=== PATIENT | female | born 1965 | race Caucasian/White ===

== ENCOUNTER 2017-08-27 20:30 | Emergency (ER) | payer BC ==
[2017-08-27] MEDS ORDERED: predniSONE 20 MG TAB PO ONE (20:52)
[2017-08-27] MEDS ORDERED: FAMOTIDINE 20 MG TAB PO ONE (20:52)
--- NOTE | 2017-08-27 20:54 | EDPHY ---
H & P Stated Complaint: Rash to trunk front and back since earlier today. Time Seen by Provider: 08/27/17 20:48 HPI/ROS: CHIEF COMPLAINT: Urticaria HISTORY OF PRESENT ILLNESS: Patient is a 51-year-old female who developed urticaria about 2 hr ago after eating and new energy bar. She cannot think of any other new possible triggers. She denies any swelling of her mouth airway. No difficulty breathing. No nausea vomiting. She was having intense itching and took 2 Benadryl about 1 hr ago. She is not on any medications. REVIEW OF SYSTEMS: Constitutional: denies: chills, fever, recent illness, recent injury EENTM: denies: blurred vision, double vision, nose congestion Respiratory: denies: cough, shortness of breath Cardiac: denies: chest pain, irregular heart rate, lightheadedness, palpitations Gastrointestinal/Abdominal: denies: abdominal pain, diarrhea, nausea, vomiting, blood streaked stools Genitourinary: denies: dysuria, frequency, hematuria, pain Musculoskeletal: denies: joint pain, muscle pain Skin: See HPI Neurological: denies: headache, numbness, paresthesia, tingling, dizziness, weakness Hematologic/Lymphatic: denies: blood clots, easy bleeding, easy bruising Immunologic/allergic: denies: HIV/AIDS, transplant EXAM: GENERAL: Well-appearing, well-nourished and in no acute distress. HEAD: Atraumatic, normocephalic. EYES: Pupils equal round and reactive to light, extraocular movements intact, sclera anicteric, conjunctiva are normal. ENT: No intraoral swelling, TMs normal, nares patent, oropharynx clear without exudates. Moist mucous membranes. NECK: Normal range of motion, supple without lymphadenopathy or JVD. LUNGS: No stridor, Breath sounds clear to auscultation bilaterally and equal. No wheezes rales or rhonchi. HEART: Regular rate and rhythm without murmurs, rubs or gallops. ABDOMEN: Soft, nontender, normoactive bowel sounds. No guarding, no rebound. No masses appreciated. BACK: No CVA tenderness, no spinal tenderness, step-offs or deformities EXTREMITIES: Normal range of motion, no pitting or edema. No clubbing or cyanosis. NEUROLOGICAL: Cranial nerves II through XII grossly intact. Normal speech, normal gait. 5 strength, normal movement in all extremities, normal sensation PSYCH: Normal mood, normal affect. SKIN: Urticarial lesions over trunk and very slightly on the lower extremities. Source: Patient Exam Limitations: No limitations - Personal History LMP (Females 10-55): 15-21 Days Ago Current Tetanus/Diphtheria Vaccine: Yes Current Tetanus Diphtheria and Acellular Pertussis (TDAP): Yes Tetanus Vaccine Date: 2011 - Medical/Surgical History Hx Asthma: No Hx Chronic Respiratory Disease: No Hx Diabetes: No Hx Cardiac Disease: No Hx Renal Disease: No Hx Cirrhosis: No Hx Alcoholism: No Hx HIV/AIDS: No Hx Splenectomy or Spleen Trauma: No Other PMH: hypothyroid. - Family History Significant Family History: No pertinent family hx - Social History Smoking Status: Never smoked Alcohol Use: Sober Constitutional: Initial Vital Signs Temperature (C) 36.8 C 08/27/17 20:40 Heart Rate 69 08/27/17 20:40 Respiratory Rate 16 08/27/17 20:40 Blood Pressure 116/61 08/27/17 20:40 O2 Sat (%) 98 08/27/17 20:40 O2 Delivery Mode Room Air Allergies/Adverse Reactions: No Known Allergies Allergy (Verified 08/27/17 20:40) Home Medications: Medication Instructions Recorded Levothyroxine 04/11/16 Famotidine [Pepcid 20 MG (OTC)] 20 mg PO BID #14 tab 08/27/17 diphenhydrAMINE [Benadryl 50 MG 50 mg PO Q4-6PRN PRN #30 cap 08/27/17 (OTC)] predniSONE 60 mg PO DAILY #12 tab 08/27/17 Medical Decision Making ED Course/Re-evaluation: 9:30 p.m. the patient is doing somewhat better. Her rash starting to improve. I will prescribe her Benadryl, Pepcid and prednisone. We discussed had a titrate them. Discussed follow-up with an screw machine operator. She is happy with this plan and declines further workup or testing at this time. Differential Diagnosis: Partial list of the Differential diagnosis considered include but were not limited to; urticaria, allergic reaction, anaphylaxis and although unlikely based on the history and physical exam, I also considered sepsis, cellulitis, folliculitis. I discussed these differential diagnoses and the plan with the patient as well as the usual and expected course. The patient understands that the diagnosis is provisional and that in medicine we are not always correct and that further workup is often warranted. Usual and customary warnings were given. All of the patient's questions were answered. The patient was instructed to return to the emergency department should the symptoms at all worsen or return, otherwise to followup with the physician as we discussed. - Data Points Medications Given: Discontinued Medications Famotidine (Pepcid) 40 mg PO EDNOW ONE Stop: 08/27/17 20:53 Last Admin: 08/27/17 20:59 Dose: 40 mg Prednisone (Prednisone) 60 mg PO EDNOW ONE Stop: 08/27/17 20:53 Last Admin: 08/27/17 20:58 Dose: 60 mg Departure - Departure Disposition: Home, Routine, Self-Care Clinical Impression: Urticaria Condition: Fair Instructions: Urticaria (ED) Referrals: Denia Cevallos MD [Primary Care Provider] - As per Instructions Prescriptions: diphenhydrAMINE [Benadryl 50 MG (OTC)] 50 mg PO Q4-6PRN PRN #30 cap PRN Reason: Itching Famotidine [Pepcid 20 MG (OTC)] 20 mg PO BID #14 tab predniSONE 60 mg PO DAILY #12 tab
[2017-08-27 21:37] VITALS: BP 103/59; PULSE 57; RESP 18; TEMP 98.4; O2SAT 95
== END 2017-08-27 21:36 | disposition home or self-care (01) ==
LOC: CED 20:30
DX: L50.9 Urticaria, unspecified (principal)
CPT/HCPCS: J7512